=== PATIENT | male | born 1985 | race Caucasian/White ===

== ENCOUNTER 2017-12-26 22:03 | Emergency (ER) | payer OTHER ==
[~2017-12-26] VITALS: Ht 188 cm; Wt 93.0 kg
[2017-12-26] MEDS ORDERED: PANTOPRAZOLE 40 MG (PROTONIX) VIAL IV ONE (22:30)
[2017-12-26] MEDS ORDERED: SCOPOLAMINE 1.5 MG (TRANSDERM-SCOP) PATCH TD ONE (22:30)
[2017-12-26] MEDS ORDERED: ONDANSETRON 4 MG/2 ML (SDV) Z0FRAN IVP ONE ×2 (22:30→23:15)
--- NOTE | 2017-12-26 22:30 | ED General ---
General Stated Complaint: ETOH INTOXICATION Source of Information: Spouse Exam Limitations: Intoxication History of Present Illness Date Seen by Provider: Dec 26, 2017 Time Seen by Provider: 22:20 Initial Comments PT ARRIVES VIA POV PT IS HERE VISITING FROM [facility], FOR A [place]ING AND HAS BEEN DRINKING ALCOHOL ALL DAY, SINCE 11;00 AM TODAY STATES NORMALLY HE ONLY DRINKS ON OCCASION AND IS ONLY 1-2 BEERS PT HAS BEEN DRINKING MULTIPLE DIFFERENT KINDS OF ALCOHOL TODAY PT BEGAN VOMITING AN HOUR AGO, AND CANNOT KEEP ANYTHING DOWN PT DID EAT TONIGHT, BUT IT DID NOT STAY DOWN Allergies and Home Medications Allergies Coded Allergies: No Known Drug Allergies (Unverified , 12/26/17) Patient Home Medication List Home Medication List Reviewed: Yes Review of Systems Review of Systems Constitutional: other (PT UNABLE TO ANSWER DUE TO INTOXICATION) Gastrointestinal: see HPI, nausea, vomiting Past Trifktx-Xbvhfu-Wrtsxy Hx Patient Social History Alcohol Use: Occasionally Uses Recreational Drug Use: No Smoking Status: Never a Smoker Recent Foreign Travel: No Contact w/Someone Who Travel: No Past Medical History Surgeries: Yes (LIPOMA REMOVED FROM CHEST APPROXIMATELY A MONTH AGO) Respiratory: No Cardiac: Yes (IS NOT CURRENTLY TAKING BLOOD PRESSURE MEDICATION) Hypertension Neurological: No Genitourinary: No Gastrointestinal: No Musculoskeletal: No Endocrine: No HEENT: No Cancer: No Did You Recieve Any Treatments: No Psychosocial: No Integumentary: No Blood Disorders: No Physical Exam Vital Signs Vital Signs - First Documented 12/26/17 12/27/17 22:13 00:31 Temp 96.2 Pulse 83 Resp 20 B/P (MAP) 124/75 (91) Pulse Ox 100 O2 Delivery Room Air Capillary Refill : Height, Weight, BMI Height: '" Weight: lbs. oz. kg; BMI Method: General Appearance: Other (OBVIOUSLY INTOXICATED. VOMITING/DRY HEAVING, SPEECH MILDLY SLURRED AND GAIT UNSTEADY. ) HEENT: Normal ENT Inspection Neck: Normal Inspection Respiratory: Normal Breath Sounds, No Accessory Muscle Use, No Respiratory Distress Cardiovascular: Regular Rate, Rhythm, No Murmur Gastrointestinal: Non Tender, Soft Extremity: Normal Inspection Neurologic/Psychiatric: No Motor/Sensory Deficits (GROSSLY INTACT. ), Other ( VERY LIMITED DUE TO LEVEL OF INTOXICATION. ) Skin: Warm/Dry, Pallor Progress/Results/Core Measures Suspected Sepsis SIRS Temperature: Pulse: Respiratory Rate: Laboratory Tests 12/26/17 22:27: White Blood Count 9.5 Blood Pressure / Mean: Laboratory Tests 12/26/17 22:27: Creatinine 0.99, INR Comment 1.0, Platelet Count 315, Total Bilirubin 0.5 Results/Orders Lab Results Laboratory Tests Test 12/26/17 00:03 12/26/17 22:27 Range/Units Urine Color YELLOW Urine Clarity CLEAR Urine pH 6.5 5-9 Urine Specific [place] 1.015 L 1.016-1.022 Urine Protein NEGATIVE NEGATIVE Urine Glucose (UA) NEGATIVE NEGATIVE Urine Ketones NEGATIVE NEGATIVE Urine Nitrite NEGATIVE NEGATIVE Urine Bilirubin NEGATIVE NEGATIVE Urine Urobilinogen NORMAL NORMAL MG/DL Urine Leukocyte Esterase NEGATIVE NEGATIVE Urine RBC (Auto) NEGATIVE NEGATIVE Urine RBC NONE /HPF Urine WBC NONE /HPF Urine Squamous Epithelial Cells NONE /HPF Urine Crystals NONE /LPF Urine Bacteria NEGATIVE /HPF Urine Casts NONE /LPF Urine Mucus NEGATIVE /LPF Urine Culture Indicated NO Urine Opiates Screen NEGATIVE NEGATIVE Urine Oxycodone Screen NEGATIVE NEGATIVE Urine Methadone Screen NEGATIVE NEGATIVE Urine Propoxyphene Screen NEGATIVE NEGATIVE Urine Barbiturates Screen NEGATIVE NEGATIVE Ur Tricyclic Antidepressants Screen NEGATIVE NEGATIVE Urine Phencyclidine Screen NEGATIVE NEGATIVE Urine Amphetamines Screen NEGATIVE NEGATIVE Urine Methamphetamines Screen NEGATIVE NEGATIVE Urine Benzodiazepines Screen NEGATIVE NEGATIVE Urine Cocaine Screen NEGATIVE NEGATIVE Urine Cannabinoids Screen NEGATIVE NEGATIVE White Blood Count 9.5 4.3-11.0 10^3/uL Red Blood Count 5.08 4.35-5.85 10^6/uL Hemoglobin 15.2 13.3-17.7 G/DL Hematocrit 43 40-54 % Mean Corpuscular Volume 85 80-99 FL Mean Corpuscular Hemoglobin 30 25-34 PG Mean Corpuscular Hemoglobin Concent 35 32-36 G/DL Red Cell Distribution Width 13.2 10.0-14.5 % Platelet Count 315 130-400 10^3/uL Mean Platelet Volume 8.9 7.4-10.4 FL Neutrophils (%) (Auto) 53 42-75 % Lymphocytes (%) (Auto) 36 12-44 % Monocytes (%) (Auto) 8 0-12 % Eosinophils (%) (Auto) 4 0-10 % Basophils (%) (Auto) 0 0-10 % Neutrophils # (Auto) 5.0 1.8-7.8 X 10^3 Lymphocytes # (Auto) 3.4 1.0-4.0 X 10^3 Monocytes # (Auto) 0.7 0.0-1.0 X 10^3 Eosinophils # (Auto) 0.3 0.0-0.3 10^3/uL Basophils # (Auto) 0.0 0.0-0.1 10^3/uL Prothrombin Time 13.2 12.2-14.7 SEC INR Comment 1.0 0.8-1.4 Activated Partial Thromboplast Time 26 24-35 SEC Sodium Level 142 135-145 MMOL/L Potassium Level 3.9 3.6-5.0 MMOL/L Chloride Level 106 98-107 MMOL/L Carbon Dioxide Level 21 21-32 MMOL/L Anion Gap 15 H 5-14 MMOL/L Blood Urea Nitrogen 11 7-18 MG/DL Creatinine 0.99 0.60-1.30 MG/DL Estimat Glomerular Filtration Rate > 60 BUN/Creatinine Ratio 11 Glucose Level 124 H 70-105 MG/DL Calcium Level 9.3 8.5-10.1 MG/DL Corrected Calcium 8.5-10.1 MG/DL Total Bilirubin 0.5 0.1-1.0 MG/DL Aspartate Amino Transf (AST/SGOT) 21 5-34 U/L Alanine Aminotransferase (ALT/SGPT) 24 0-55 U/L Alkaline Phosphatase 46 40-136 U/L Total Protein 7.7 6.4-8.2 GM/DL Albumin 5.2 H 3.2-4.5 GM/DL Serum Alcohol 232 H <10 MG/DL My Orders Orders - ANDREEA HILTON DO Saline Lock/Iv-Start (12/26/17 22:20) Monitor-Rhythm Ecg Trace Only (12/26/17 22:20) Alcohol (12/26/17 22:20) Cbc With Automated Diff (12/26/17 22:20) Comprehensive Metabolic Panel (12/26/17 22:20) Drug Screen Stat (Urine) (12/26/17 22:20) Protime With Inr (12/26/17 22:20) Partial Thromboplastin Time (12/26/17 22:20) Ua Culture If Indicated (12/26/17 22:20) Ondansetron Injection (Zofran Injectio (12/26/17 22:30) Scopolamine Patch (Transderm-Scop Patch) (12/26/17 22:30) Pantoprazole Injection (Protonix Injecti (12/26/17 22:30) Saline Lock/Iv-Start (12/26/17 22:32) Lactated Ringers (Lr 1000 Ml Iv Solution (12/26/17 22:32) Saline Lock/Iv-Start (12/26/17 22:57) Lactated Ringers (Lr 1000 Ml Iv Solution (12/26/17 22:57) Ondansetron Injection (Zofran Injectio (12/26/17 23:15) Saline Lock/Iv-Start (12/27/17 00:03) Lactated Ringers (Lr 1000 Ml Iv Solution (12/27/17 00:03) Rx-Ondansetron Po (Rx-Zofran Po) (12/27/17 00:11) Rx-Ondansetron Po (Rx-Zofran Po) (12/27/17 00:14) Medications Given in ED Current Medications Medications Dose Ordered Sig/Dino Route Start Time Stop Time Status Last Admin Dose Admin Lactated Ringer's 1,000 ml @ 0 mls/hr Q0M ONCE IV 12/26/17 22:32 12/26/17 22:34 DC 12/26/17 22:39 999 MLS/HR Lactated Ringer's 1,000 ml @ 0 mls/hr Q0M ONCE IV 12/26/17 22:57 12/26/17 22:58 DC 12/26/17 23:26 999 MLS/HR Ondansetron HCl 8 mg ONCE ONCE IVP 12/26/17 22:30 12/26/17 22:31 DC 12/26/17 22:38 8 MG Ondansetron HCl 8 mg ONCE ONCE IVP 12/26/17 23:15 12/26/17 23:16 DC 12/26/17 23:26 8 MG Pantoprazole 40 mg ONCE ONCE IV 12/26/17 22:30 12/26/17 22:31 DC 12/26/17 22:38 40 MG Scopolamine 1.5 mg ONCE ONCE TD 12/26/17 22:30 12/26/17 22:31 DC 12/26/17 22:38 1.5 MG Vital Signs/I&O 12/26/17 12/27/17 22:13 00:31 Temp 96.2 96.2 Pulse 83 83 Resp 20 20 B/P (MAP) 124/75 (91) 124/75 (91) Pulse Ox 100 O2 Delivery Room Air 12/27/17 00:00 Intake Total 1000 ml Balance 1000 ml Capillary Refill : Progress Note : Progress Note LOOKS AND FEELS MUCH BETTER WITH FLUIDS AND MEDICATIONS PT TOLERATING ICE CHIPS AND SIPS OF WATER NO FURTHER VOMITING SPEECH IS CLEAR AND GAIT STEADY AT DISMISSAL Departure Impression Primary Impression: Alcohol intoxication Disposition: 01 HOME, SELF-CARE Condition: Improved Departure-Patient Inst. Referrals: UNKNOWN (PCP/Family) Primary Care Physician Patient Instructions: Alcohol Abuse and Alcoholism (DC) Add. Discharge Instructions: CLEAR LIQUIDS, SIPS AT A TIME--WATER, BROTH, JELLO, GATORADE WHEN YOU ARE FEELING BETTER, ADD BRATS DIET TO CLEAR LIQUIDS--BANANAS, RICE, APPLESAUCE, TOAST, SALTINES FOLLOW UP WITH YOUR DR NEEDED ANDREEA HILTON DO Dec 26, 2017 22:30
[2017-12-26] MEDS ORDERED: LACTATED RINGERS 1,000 ML IV ONE ×2 (22:32→22:57)
[2017-12-26 22:33] LABS: BASOPHILS % (AUTO) 0 % (0-10); EOSINOPHILS # (AUTO) 0.3 10^3/uL (0.0-0.3); EOSINOPHILS % (AUTO) 4 % (0-10); HEMATOCRIT 43 % (40-54); HEMOGLOBIN 15.2 G/DL (13.3-17.7); LYMPHOCYTES # (AUTO) 3.4 X 10^3 (1.0-4.0); LYMPHOCYTES % (AUTO) 36 % (12-44); MEAN CORPUSCULAR HEMOGLOBIN 30 PG (25-34); MEAN CORPUSCULAR HGB CONC 35 G/DL (32-36); MEAN CORPUSCULAR VOLUME 85 FL (80-99); MEAN PLATELET VOLUME 8.9 FL (7.4-10.4); MONOCYTES # (AUTO) 0.7 X 10^3 (0.0-1.0); MONOCYTES % (AUTO) 8 % (0-12); NEUTROPHILS % (AUTO) 53 % (42-75); PLATELET COUNT 315 10^3/uL (130-400); RED BLOOD COUNT 5.08 10^6/uL (4.35-5.85); RED CELL DISTRIBUTION WIDTH 13.2 % (10.0-14.5); WHITE BLOOD COUNT 9.5 10^3/uL (4.3-11.0)
[2017-12-26 22:45] LABS: PROTHROMBIN TIME PATIENT 13.2 SEC (12.2-14.7)
[2017-12-26 22:55] LABS: ALANINE AMINOTRANSFERASE 24 U/L (0-55); ALBUMIN 5.2 GM/DL (3.2-4.5); ALKALINE PHOSPHATASE 46 U/L (40-136); BILIRUBIN,TOTAL 0.5 MG/DL (0.1-1.0); BUN/CREATININE RATIO 11; CALCIUM 9.3 MG/DL (8.5-10.1); CARBON DIOXIDE 21 MMOL/L (21-32); CHLORIDE 106 MMOL/L (98-107); CREATININE SERUM 0.99 MG/DL (0.60-1.30); GFR ESTIMATED > 60; GLUCOSE 124 MG/DL (70-105); POTASSIUM 3.9 MMOL/L (3.6-5.0); SODIUM 142 MMOL/L (135-145); TOTAL PROTEIN 7.7 GM/DL (6.4-8.2)
[2017-12-27] MEDS ORDERED: LACTATED RINGERS 1,000 ML IV ONE (00:03)
[2017-12-27] MEDS ORDERED: RX-ONDANSETRON 4 MG ODT (ZOFRAN) PPK #4 PO STA (00:11)
[2017-12-27] MEDS ORDERED: RX-ONDANSETRON 4 MG ODT (ZOFRAN) PPK #4 ONE (00:14)
[2017-12-27 00:22] LABS: BILIRUBIN,URINE NEGATIVE (NEGATIVE); CLARITY,URINE CLEAR; COLOR,URINE YELLOW; GLUCOSE, URINE (UA) NEGATIVE (NEGATIVE); KETONES,URINE NEGATIVE (NEGATIVE); LEUKOCYTE ESTERASE ,URINE NEGATIVE (NEGATIVE); NITRITE,URINE NEGATIVE (NEGATIVE); PH,URINE 6.5 (5-9); PROTEIN,URINE NEGATIVE (NEGATIVE); UROBILINOGEN,URINE NORMAL (NORMAL)
[2017-12-27 00:31] VITALS: BP 124/75
[2017-12-27 00:33] LABS: AMPHETAMINE SCREEN, URINE NEGATIVE (NEGATIVE); BACTERIA,URINE NEGATIVE /HPF; BARBITURATE SCREEN URINE NEGATIVE (NEGATIVE); BENZODIAZEPINES SCREEN URINE NEGATIVE (NEGATIVE); CANNABINOID SCREEN, URINE NEGATIVE (NEGATIVE); COCAINE SCREEN URINE NEGATIVE (NEGATIVE); METHADONE STAT NEGATIVE (NEGATIVE); METHAMPHETAMINE SCREEN URINE S NEGATIVE (NEGATIVE); OPIATE SCREEN URINE NEGATIVE (NEGATIVE); OXYCODONE STAT NEGATIVE (NEGATIVE); PROPOXYPHENE STAT NEGATIVE (NEGATIVE); TRICYCLIC ANTIDEPRESSANTS SCRE NEGATIVE (NEGATIVE)
== END 2017-12-27 00:30 | disposition home or self-care (01) ==
LOC: ER 22:05
DX: F10.129 Alcohol abuse with intoxication, unspecified (principal); I10 Essential (primary) hypertension
CPT/HCPCS: 36415; 80053; 80306; 80320; 81000; 85025; 85610; 85730; 93041